=== PATIENT | male | born 1955 | race African-American/Black ===

== ENCOUNTER 2017-09-21 23:59 | Emergency (ER) | payer MEDICAID ==
[~2017-09-21] VITALS: Ht 177.8 cm; Wt 80.0 kg
[2017-09-22 09:18] VITALS: BP 120/87
== END 2017-09-22 09:19 | disposition home or self-care (01) ==
LOC: ER 23:59
DX: E11.649 Type 2 diabetes mellitus with hypoglycemia without coma (principal); I10 Essential (primary) hypertension; Z79.4 Long term (current) use of insulin
CPT/HCPCS: 36415; 70450; 82947; 82962; 99285